=== PATIENT | male | born 1970 | race Caucasian/White ===

== ENCOUNTER 2019-05-27 17:52 | Emergency (ER) | payer OTHER, SELFPAY ==
--- NOTE | 2019-05-27 18:02 | ED.GENADULT ---
HPI - General Adult General Chief complaint: Skin/Abscess/Foreign Body Stated complaint: fever and celulitous in right leg Time Seen by Provider: 05/27/19 18:30 Source: patient Mode of arrival: ambulatory Limitations: no limitations History of Present Illness HPI narrative: 48-year-old male patient presents to the [facility] with complaints of cellulitis to the right leg, right leg pain along with a stye to the left eye. Patient also states he started having fevers and some chills today. Patient states that he has had cellulitis to the right leg multiple times before. Denies any diabetes that he is aware of. Patient states he has had Dopplers to his lower legs before which he was told were fine. Patient states he noticed that recently his legs have been overall aching more so on the right than the left. Especially after standing for long periods of time. Patient states he noticed the cellulitis area to the right inner thigh today and noticed that he was getting fevers along with chills. Denies any chest pain or shortness of breath or coughing. Patient states that he was not able to get into his doctors today but states that he has been trying to call his doctor tomorrow for follow-up because at times they do have Thursday hours. Related Data Home Medications Medication Instructions Recorded Confirmed Cpap 05/27/19 05/27/19 Allergies Allergy/AdvReac Type Severity Reaction Status Date / Time ibuprofen AdvReac Unknown UVULA Verified 05/27/19 18:31 SWELLS AT TIMES(NOT ALL OF THE TIME) Review of Systems Review of Systems: Narrative: CONSTITUTIONAL: Positive fever, chills, denies sweats. EYES: Denies visual changes, positive left eye redness, and clear tearing ENT: Denies rhinorrhea, congestion, sore throat, or otalgia. CARDIOVASCULAR: Denies chest pain, palpitations, or edema. RESPIRATORY: Denies cough or dyspnea. GASTROINTESTINAL: Denies abdominal pain, nausea, vomiting, or diarrhea. GENITOURINARY: Denies dysuria or hematuria. SKIN: Positive wound to right inner thigh that started today MUSCULOSKELETAL: Denies back pain, joint pain, or myalgia. NEUROLOGIC: Denies headache, numbness, or weakness. PSYCHIATRIC: Denies anxiety or depression. [facility] Past Medical History Medical History (Updated 05/27/19 @ 18:43 by DENA Jones) Cellulitis MRSA cellulitis Surgical History Surgical History (Updated 05/27/19 @ 18:32 by DENA Jones) History of orthopedic surgery Left elbow due to fracture Comments At the time of my signature I agree with nursing past medical history, surgical, social, and family history. There is no relevant family history pertinent to the presenting complaint. Exam Narrative: Exam Narrative: GENERAL: Well-appearing, well-nourished, and in no acute distress. HEAD: Normocephalic, atraumatic. EYES: PERRLA and EOMI. there does seem to be some redness and swelling to the left lateral lower lid on the left eye with an external hordeolum present. There is no obvious discharge noted at this time. ENT: Nares clear, no rhinorrhea or epistaxis. Mucous membranes moist. NECK: Supple. No lymphadenopathy CHEST: Clear to auscultation. No respiratory distress. HEART: Regular rate and rhythm. No murmur heard. Normal peripheral pulses. ABDOMEN: Soft, nontender, nondistended, normal active bowel sounds. EXTREMITIES: Normal range of motion. No edema. SKIN: Warm, dry, no rash. Patient has a 7 cm x 5 cm cellulitis noted to the right inner thigh with warmth and some tenderness noted. There is no obvious abscess or swelling. No pitting edema noted. Patient does appear to have some pale dusky skin to both bilateral lower extremities. NEURO: No focal deficits. Alert and oriented x3. Course Vital Signs Vital signs: Vital Signs Temperature 38.3 C H 05/27/19 18:08 Pulse Rate 71 05/27/19 18:08 Respiratory Rate 20 05/27/19 18:08 Blood Pressure 120/46 L 05/27/19 18:08 P
[2019-05-27 18:08] VITALS: BP 120/46; PULSE 71; RESP 20; TEMP 38.3; O2SAT 95
== END 2019-05-27 18:47 | disposition home or self-care (01) ==
PROVIDERS: Emergency Provider Nurse Practitioner Family
DX: H00.015 Hordeolum externum left lower eyelid (principal); L03.115 Cellulitis of right lower limb; Z86.14 Personal history of Methicillin resistant Staphylococcus aureus infection
CPT/HCPCS: 99213; G0463

== ENCOUNTER 2019-07-22 17:55 | Emergency (ER) | payer OTHER, SELFPAY ==
[2019-07-22 18:02] VITALS: BP 152/67; PULSE 61; RESP 20; TEMP 37.2; O2SAT 98
--- NOTE | 2019-07-22 18:04 | ED.EYEPROB ---
HPI - Eye Problem General Chief complaint: Skin/Abscess/Foreign Body Stated complaint: eye and elbow Time Seen by Provider: 07/22/19 18:04 Source: patient and RN notes reviewed History of Present Illness HPI Narrative: Patient is a 49-year-old male who presents the urgent care with complaints of 2-day history of a sore to the right elbow. Patient states that he noticed it approximately 2 days ago after picking on a pimple . Patient states he does have a history of staph and was worried about the redness surrounding the pimple. Patient has not done anything as far as cleaning the area. Patient denies any pain medicine. States that he also woke up approximately 2 days ago with some severe itching to the left eye and he noticed a stye to the area which is increased and irritation and redness. Patient denies of any known fever, chills, nausea, vomiting. No other acute complaints. No acute distress noted. Patient read the plan of care. Related Data Home Medications Medication Instructions Recorded Confirmed Bipap 07/22/19 07/22/19 Allergies Allergy/AdvReac Type Severity Reaction Status Date / Time No Known Allergies Allergy Verified 07/22/19 18:14 Review of Systems Review of Systems: Narrative: CONSTITUTIONAL: Denies fever, chills, or sweats. EYES: Reports of redness, irritation and a notable stye to the left eye ENT: Denies rhinorrhea, congestion, sore throat, or otalgia. CARDIOVASCULAR: Denies chest pain, palpitations, or edema. RESPIRATORY: Denies cough or dyspnea. GASTROINTESTINAL: Denies abdominal pain, nausea, vomiting, or diarrhea. GENITOURINARY: Denies dysuria or hematuria. SKIN: Reports of a infected sore to the right elbow MUSCULOSKELETAL: Denies back pain, joint pain, or myalgia. NEUROLOGIC: Denies headache, numbness, or weakness. All other systems reviewed are negative, except as documented in HPI. [facility] Past Medical History Medical History (Updated 07/22/19 @ 18:20 by DENA Aviles) Cellulitis MRSA cellulitis Surgical History Surgical History (Updated 05/27/19 @ 18:32 by DENA Jones) History of orthopedic surgery Left elbow due to fracture Comments At the time of my signature, I reviewed and agree with the nursing past medical, surgical, social, and family history. There is no relevant family history pertinent to the patient complaint. Exam Narrative: Exam Narrative: GENERAL: This is a well-nourished, well-developed patient, in no apparent distress. HEAD: normocephalic, atraumatic. EYES: PERRL. Sclera clear/white. Vision is grossly intact. Moderate injected conjunctive a noted to the left with notable external hordeolum to the lower inner canthus as well as internal hordeolum to the lower eyelid of the left eye-mild erythema and edema to the left lower eyelid EARS: External ears normal, auditory canals clear and without drainage, TMs normal without perforation. Hearing grossly intact. NOSE: External nose normal with no obvious nasal discharge, nares without redness, no rhinorrhea. THROAT: Mucous membranes moist NECK: Neck supple SKIN: Sick centimeter diameter area of erythema and mild edema surrounding a 1 cm open sore to the right elbow NEURO: awake, alert, and oriented to person, place and time. There were no obvious focal neurologic abnormalities. EXTREMITIES: No clubbing, cyanosis, or edema. Course Vital Signs Vital signs: Vital Signs Temperature 98.9 F 07/22/19 18: Pulse Rate 61 07/22/19 18:02 Respiratory Rate 20 07/22/19 18:02 Blood Pressure 152/67 H 07/22/19 18:02 Pulse Oximetry 98 07/22/19 18: Temperature 98.9 F 07/22/19 18:02 Pulse Rate 61 07/22/19 18:02 Respiratory Rate 20 07/22/19 18:02 Blood Pressure 152/67 H 07/22/19 18:02 Pulse Oximetry 98 07/22/19 18:02 Reviewed?patient is informed that they may have pre-hypertension or hypertension based on a blood pressure reading in the department. I recommend the patient call
== END 2019-07-22 18:25 | disposition home or self-care (01) ==
PROVIDERS: Emergency Provider Nurse Practitioner Family; PCP Internal Medicine
DX: L03.113 Cellulitis of right upper limb (principal); H00.015 Hordeolum externum left lower eyelid; H00.025 Hordeolum internum left lower eyelid
CPT/HCPCS: 99213; G0463

== ENCOUNTER 2020-03-16 09:32 | Emergency (ER) | payer OTHER, SELFPAY ==
[2020-03-16 09:52] VITALS: BP 65/42; PULSE 68; RESP 24; TEMP 37.2; O2SAT 96
[2020-03-16 09:57] VITALS: BP 71/31
--- NOTE | 2020-03-16 10:07 | ED.SKABFB ---
HPI - Skin/Abscess/Foreign Bdy General Chief complaint: Skin/Abscess/Foreign Body Stated complaint: cellulitis Source: patient Mode of arrival: ambulatory Limitations: no limitations History of Present Illness HPI narrative: Kelly Londono is a 49 yo male with a PMH of borderline diabetic, sleep apnea, who comes to [facility] with right upper thigh pain and tightness BS 104, hypotensive, pulse within normal range, color is dusky and he smokes 1.5 packs of cigarettes a day Patient historically has been intermittently going to the doctor, states that he has been told he is prediabetic but is not on any medication, appears somewhat shaky today but he states is because he did not eat this morning and that once he gets flood in his system he will be feeling better. 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 EYES: Denies visual changes, redness, discharge. ENT: Denies rhinorrhea, congestion, sore throat, otalgia. CARDIOVASCULAR: Denies chest pain, palpitations, edema. RESPIRATORY: Denies dyspnea, wheezing, cough GASTROINTESTINAL: Denies abdominal pain, nausea, vomiting, diarrhea. GENITOURINARY: Denies dysuria, hematuria, abnormal discharge SKIN: Denies rash or itching. Indurated red skin NEUROLOGIC: Denies numbness, or focal weakness. PSYCHIATRIC: Denies anxiety or depression. [facility] Past Medical History Medical History Cellulitis MRSA cellulitis Surgical History Surgical History History of orthopedic surgery Left elbow due to fracture Family History Family History Other Heart disease Social History Social History (Updated 03/16/20 @ 10:24 by Kori Harding CNP) Smoking packs per day: 1.5 Smoking cigarettes per day: 30.0 Years smoked: 34 Smoking pack-years: 51.00 Smoking status: Current every day smoker Alcohol intake: current Comments At time of signature, I agree with nursing past medical, surgical, social and family history. There is no relevant family history pertinent to the presenting complaint. Exam Narrative: Exam Narrative: GENERAL: This is a well-nourished, well-developed patient, in mild distress. HEAD: normocephalic, atraumatic. EYES: Sclera clear/white. Vision is grossly intact. EARS: External ears normal, . Hearing grossly intact. NOSE: External nose normal without nasal discharge, nares without redness, no rhinorrhea. THROAT: Mucous membranes moist, NECK: Neck supple, CARDIOVASCULAR: Regular rate and rhythm without murmurs, gallops, or rubs. RESPIRATORY: Diminished and coarse in all rice to auscultation. Breath sounds equal bilaterally. No wheezes, rales, or rhonchi. GASTROINTESTINAL: Abdomen soft, non-tender, SKIN: warm, intact with 3 x 5 cm area of redness and induration on right medial lower thigh; leg measures 21-3/4 inch left sure is 20 1/2 inches. NEURO: awake, alert, and oriented to person, place and time. There were no obvious focal neurologic abnormalities. Steady gait EXTREMITIES: Normal range of motion. BACK: Nontender without deformity Course Course Emergency Course: Patient here for possible cellulitis of the right thigh, hypertensive and she hit this morning Given food after check of blood sugar which is 104 patient and started on Bactrim and Keflex-directions given to patient BP low initially,given peanut butter and water- orthostatic vital signs performed- pt's BP stable. pt to go to his primary care doctor to get blo
[2020-03-16 10:08] LABS: Glucose Point of Care 104 (65-105)
[2020-03-16 10:40] VITALS: BP 102/40
[2020-03-16 10:42] VITALS: BP 110/64; PULSE 71
[2020-03-16 10:44] VITALS: BP 114/55; PULSE 80
--- NOTE | 2020-03-16 12:10 | PC.NURSE ---
PT TAKEN TO ROOM IN WHEELCHAIR
== END 2020-03-16 10:50 | disposition home or self-care (01) ==
PROVIDERS: Emergency Provider Nurse Practitioner; PCP Internal Medicine
DX: L03.115 Cellulitis of right lower limb (principal); Z86.14 Personal history of Methicillin resistant Staphylococcus aureus infection; F17.210 Nicotine dependence, cigarettes, uncomplicated; G47.30 Sleep apnea, unspecified; R73.03 Prediabetes
CPT/HCPCS: 82948; 99213; G0463

== ENCOUNTER 2021-04-13 09:08 | Emergency (ER) | payer OTHER, SELFPAY ==
[2021-04-13 09:13] VITALS: BP 118/75; PULSE 51; RESP 16; TEMP 36.9; O2SAT 97
--- NOTE | 2021-04-13 09:13 | ED.GENADULT ---
HPI - General Adult General Chief complaint: Skin/Abscess/Foreign Body Stated complaint: Right side bump on chest Time Seen by Provider: 04/13/21 09:13 Source: patient Mode of arrival: ambulatory Limitations: no limitations History of Present Illness HPI narrative: 50-year-old male patient presents to the [facility] with complaints of a wound under the right nipple for the past 2 to 3 days. Patient states he has had cellulitis and abscesses before with a history of MRSA. Patient states he has been trying to put a heating pad on it to try and draw out the infection. Denies any fevers, body aches or chills. Related Data Home Medications Medication Instructions Recorded Confirmed Bipap 03/16/20 04/13/21 Allergies Allergy/AdvReac Type Severity Reaction Status Date / Time No Known Allergies Allergy Verified 04/13/21 09:23 Review of Systems Review of Systems: CONSTITUTIONAL: Denies fever, chills, or sweats. EYES: Denies visual changes, redness, or discharge. ENT: Denies rhinorrhea, congestion, sore throat, or otalgia. CARDIOVASCULAR: Denies chest pain, palpitations, or edema. RESPIRATORY: Denies cough or dyspnea. GASTROINTESTINAL: Denies abdominal pain, nausea, vomiting, or diarrhea. GENITOURINARY: Denies dysuria or hematuria. SKIN: Denies rash or itching. Positive erythema wound under right nipple MUSCULOSKELETAL: Denies back pain, joint pain, or myalgia. NEUROLOGIC: Denies headache, numbness, or weakness. PSYCHIATRIC: Denies anxiety or depression. [facility] Past Medical History Medical History (Updated 04/13/21 @ 09:57 by DENA Jones) Cellulitis MRSA cellulitis Sleep apnea Surgical History Surgical History History of orthopedic surgery Left elbow due to fracture Family History Family History Other Heart disease Social History Social History Smoking packs per day: 1.5 Smoking cigarettes per day: 30.0 Years smoked: 34 Smoking pack-years: 51.00 Smoking status: Current every day smoker Alcohol intake: current Comments At the time of my signature I agree with nursing past medical history, surgical, social, and family history. There is no relevant family history pertinent to the presenting complaint. Exam Narrative: GENERAL: Well-appearing, well-nourished, and in no acute distress. HEAD: Normocephalic, atraumatic. EYES: PERRLA and EOMI. ENT: Nares clear, no rhinorrhea or epistaxis. Mucous membranes moist. NECK: Supple. No lymphadenopathy CHEST: Clear to auscultation. No respiratory distress. HEART: Regular rate and rhythm. No murmur heard. Normal peripheral pulses. ABDOMEN: Soft, nontender, nondistended, normal active bowel sounds. EXTREMITIES: Normal range of motion. No edema. SKIN: Warm, dry, no rash. Patient has approximately 6 x 2 redness with tenderness and firm to palpation under the right nipple area. There is no open wounds or draining at this time. NEURO: No focal deficits. Alert and oriented x3. Course Course Level of Care: Express Care Visit Vital Signs Vital signs: Vital Signs Temperature 36.9 C 04/13/21 09:13 Pulse Rate 51 L 04/13/21 09:13 Respiratory Rate 16 04/13/21 09:13 Blood Pressure 118/75 04/13/21 09:13 Pulse Oximetry 97 04/13/21 09:13 Temperature 36.9 C 04/13/21 09:13 Pulse Rate 51 L 04/13/21 09:13 Respiratory Rate 16 04/13/21 09:13 Blood Pressure 118/75 04/13/21 09:13 Pulse Oximetry 97 04/13/21 09:13 Vital signs reviewed Procedures Abscess I/D chest: Date of Incision: 04/13/21 Time of Incision: 09:28 Side (if applicable): right Sedation/analgesia: none Local Anesthetic: lidocaine 1% Technique: incised with #11 blade Irrigation: Yes Packing used?: none I&D Results: Blood Abcess I&D Ad
== END 2021-04-13 10:00 | disposition home or self-care (01) ==
PROVIDERS: Emergency Provider Nurse Practitioner Family; PCP Internal Medicine
DX: L02.213 Cutaneous abscess of chest wall (principal); F17.210 Nicotine dependence, cigarettes, uncomplicated; Z86.14 Personal history of Methicillin resistant Staphylococcus aureus infection; G47.30 Sleep apnea, unspecified
CPT/HCPCS: 10060; 87070; 87147; 87181; 87186; 87205; 99213; G0463